=== PATIENT | male | born 1950 | race Caucasian/White ===

== ENCOUNTER 2018-09-29 23:37 | Emergency (ER) | payer MEDICARE ==
[~2018-09-29] VITALS: Ht 170.2 cm; Wt 75.0 kg
[2018-09-30] MEDS ORDERED: SODIUM CHLORIDE FLUSH 10ML SYR IVF ONE
[2018-09-30] MEDS ORDERED: HYDROmorphone 1 MG/ML, 1ML IVPush PRN
[2018-09-30] MEDS ORDERED: HYDROcodone/APAP 5/325 TABLET ONE (00:11)
[2018-09-30 00:14] LABS: BASOPHILS # (AUTO) 0.04 x10^3/uL (0-0.1); BASOPHILS % (AUTO) 0 % (0-1); EOSINOPHILS # (AUTO) 0.16 x10^3/uL (0-0.4); EOSINOPHILS % (AUTO) 2 % (1-7); LYMPHOCYTES # (AUTO) 2.16 x10^3/uL (1-3.4); LYMPHOCYTES % (AUTO) 21 % (22-44); MD NO; MEAN CORPUSCULAR HEMOGLOBIN 31.6 pg (27.5-34.5); MEAN CORPUSCULAR HGB CONC 34.3 g/dL (33.2-36.2); MEAN CORPUSCULAR VOLUME 92.4 fL (81-97); MEAN PLATELET VOLUME 6.8 fL (7.4-10.4); MONOCYTES # (AUTO) 1.08 x10^3/uL (0.2-0.8); MONOCYTES % (AUTO) 11 % (2-9); NEUTROPHILS # (AUTO) 6.83 x10^3/uL (1.8-6.8); NEUTROPHILS % (AUTO) 67 % (42-75); PLATELET COUNT 326 x10^3/uL (130-400); RED CELL DISTRIBUTION WIDTH 13.7 % (9.4-14.8)
[2018-09-30 00:23] LABS: ALBUMIN 3.8 g/dL (3.4-5.0); ANION GAP 14 mmol/L (5-15); CALCIUM 10.5 mg/dL (8.5-10.1); CHLORIDE 105 mmol/L (98-107); CREATININE 1.35 mg/dL (0.7-1.3)
[2018-09-30 00:24] LABS: MICROSCOPIC INDICATED
[2018-09-30] MEDS ORDERED: HYDROcodone/APAP 5/325 TABLET PO ONE (00:30)
[2018-09-30 00:35] LABS: CULTURE INDICATED? NO
[2018-09-30 01:19] VITALS: BP 132/71
== END 2018-09-30 01:21 | disposition home or self-care (01) ==
LOC: ED 23:59
DX: N40.1 Benign prostatic hyperplasia with lower urinary tract symptoms (principal); R33.8 Other retention of urine; R10.30 Lower abdominal pain, unspecified
CPT/HCPCS: 36415; 51702; 80048; 81001; 82040; 85025; 99284

== ENCOUNTER → 2018-10-02 | Outpatient (CLI) | payer MEDICARE | END | disposition home or self-care (01) | LOC: CFH 10:00 | PROVIDERS: ATTEND Urology | DX: N28.89 Other specified disorders of kidney and ureter (principal) | CPT/HCPCS: 74018 ==